=== PATIENT | male | born 1960 | race Caucasian/White ===

== ENCOUNTER → 2019-12-19 | Outpatient (CLI) | payer BC ==
--- NOTE | 2019-12-20 10:42 | CT ---
Procedure: CT LUNG SCREENING Exam Date: 12/19/2019 Ordering Provider: Mushtaq Peters Clinical Indication: SCREENING . Current cigarette smoker. 35 pack years. This patient meets eligibility criteria for low-dose CT lung cancer screening. Comparison: None. Technique: Using a multislice scanner, sequential helical axial imaging was obtained in the thorax, 2.5 mm thickness, 2.5 mm separation, from the level of the thoracic inlet through the lung bases without IV contrast. A low dose protocol was utilized for BMI greater than than 30: BMI: 34.1. CTDI: 2.95 mGy. 120. kVp. 75 mA. DLP 126 mGy-cm. 2D sagittal and coronal reconstructed images, 6.0 mm thickness, were obtained. This exam was performed according to our departmental dose optimization program which includes use of automated exposure control, adjustment of the mA and/or kV according to patient size and/or use of iterative reconstruction technique. Nodule measurements under 10 mm are given as mean value of 3 axes diameters. FINDINGS: Lungs and large airways: Bilateral parenchymal blebs in a centrilobular distribution more prevalent in the upper lobes. 3 mm calcified nodule abutting the pleura in the medial recess of the right lower lobe. Similar size nodule also calcified in the posterior left upper lobe near the major fissure. Pleural parenchymal scarring inferior lingula. Pleura and space: Negative. Mediastinum and chiqui: evaluation limited by low dose technique and lack of IV contrast. Small lymph nodes. Otherwise negative. Heart and great vessels: Unremarkable. Chest wall, lower neck, axillae: Evaluation also limited by same factors as described above. Negative. Upper abdomen: Evaluation limited by low-dose technique. No free air or free fluid. Normal density and size of the adrenal glands and included spleen. Osseous structures: Evaluation limited by low dose MIP technique. Minimal spondylosis anterior mid thoracic endplates. IMPRESSION: Early placenta changes predominantly upper lobes. Small bilateral calcified nodules. No abnormal nodules and no masses. No focal infiltrates.. [facility] Best Practice Recommendations: please see below for Lung RADS category and FOLLOW-UP.* *Lung RADS category Category 1 - No nodule or definitely benign nodules (probability of malignancy less than 1%). Follow-up: Continue annual screening with Low Dose Chest CT in 12 months. Electronically signed by: Conner Medina MD 12/20/2019 10:41 AM CDT
== END ==
LOC: CT 09:14
PROVIDERS: ATTEND Family Medicine
DX: Z87.891 Personal history of nicotine dependence (principal); Z12.2 Encounter for screening for malignant neoplasm of respiratory organs; J43.9 Emphysema, unspecified; R91.8 Other nonspecific abnormal finding of lung field